=== PATIENT | male | born 1950 | race Caucasian/White ===

== ENCOUNTER 2017-11-18 20:00 | Outpatient (CLI) | payer BC | END 2017-11-18 20:01 | disposition home or self-care (01) | LOC: SLEEPLAB 20:00 | PROVIDERS: ATTEND Family Medicine | DX: G47.10 Hypersomnia, unspecified (principal); G47.33 Obstructive sleep apnea (adult) (pediatric); G47.61 Periodic limb movement disorder; G47.31 Primary central sleep apnea; I10 Essential (primary) hypertension; E66.9 Obesity, unspecified; Z68.34 Body mass index [BMI] 34.0-34.9, adult | CPT/HCPCS: 95811 ==

== ENCOUNTER 2023-03-14 09:57 | Outpatient (CLI) | payer BC ==
[2023-03-14 12:06] LABS: #Basophils 0.1 10x3/uL (0.0-0.2); #Eosinphils 0.1 10x3/uL (0.0-0.5); #Monocytes 0.6 10x3/uL (0.0-1.1); #Neutrophils 5.2 10x3/uL (1.5-8.4); %Basophils 0.7 % (0.0-2.0); %Eosinophils 1.6 % (0.0-6.0); %Lymphocytes 27.2 % (18.0-47.0); %Monocytes 7.2 % (0.0-10.0); %Neutrophils 62.9 % (40.0-75.0); Hematocrit 44.2 % (38.8-50.0); Hemoglobin 14.9 g/dL (13.5-17.5); Mean Corpuscular HGB CONC 33.7 g/dL (32.0-36.0); Mean Corpuscular Hemoglobin 30.5 pg (27.0-33.0); Mean Corpuscular Volume 90.4 fl (81.2-95.1); Mean Platelet Volume 9.7 fl (7.4-10.4); Platelet Count 222 10x3/uL (150-450); RBC Distribution Width 12.9 % (11.5-14.5); Red Blood Cell (RBC) Count 4.89 10x6/uL (4.32-5.72); White Blood Cell (WBC) Count 8.3 10x3/uL (3.5-10.5)
[2023-03-14 12:23] LABS: Anion Gap 14 mmol/L (10-20); BUN (Urea Nitrogen) 13 mg/dL (8.4-25.7); Calc. Creatinine Clearance 0 mL/min (70-130); Calcium 9.2 mg/dL (7.8-10.44); Carbon Dioxide 28 mmol/L (23-31); Chloride 99 mmol/L (98-107); Estimated GFR 92; Glucose 117 mg/dL (83-110); Potassium 3.9 mmol/L (3.5-5.1); Sodium 137 mmol/L (136-145)
== END 2023-03-14 09:58 | disposition home or self-care (01) ==
LOC: LABBT 09:57
PROVIDERS: ATTEND Surgery
DX: Z01.818 Encounter for other preprocedural examination (principal); K40.90 Unilateral inguinal hernia, without obstruction or gangrene, not specified as recurrent
CPT/HCPCS: 80048; 85025; 93005; 93010

== ENCOUNTER 2023-03-21 07:55 | Day surgery (SDC) | payer BC ==
[2023-03-14 10:25] VITALS: BMI 33.7
[2023-03-21] MEDS ORDERED: Sodium Chloride 0.9% 100 ML ONE (09:30)
[2023-03-21] MEDS ORDERED: CEFAZOLIN 2 GM VIAL ONE (09:30)
[2023-03-21] MEDS ORDERED: PROPOFOL 20 ML ONE ×2 (10:42→11:13)
[2023-03-21] MEDS ORDERED: EPINEPHrine 1 MG/ML VIAL ONE (10:45)
[2023-03-21] MEDS ORDERED: Bupivacaine 0.25% HCL 30 ML VIAL ONE (10:45)
[2023-03-21] MEDS ORDERED: fentaNYL PF 100 MCG/2 ML SYRINGE ONE (11:12)
[2023-03-21] MEDS ORDERED: Sevoflurane 250 ML INH ANEST BOTTLE ONE (11:13)
[2023-03-21] MEDS ORDERED: Rocuronium Bromide 10 MG/ML (10ML VIAL) ONE ×2 (11:37→11:42)
[2023-03-21] MEDS ORDERED: PROPOFOL 200 MG/20 ML VIAL ONE (11:37)
[2023-03-21] MEDS ORDERED: Ondansetron PF 4 MG/2 ML Vial ONE ×2 (11:37→12:39)
[2023-03-21] MEDS ORDERED: Glycopyrrolate 0.2 MG/ML 5 ML SYRINGE ONE ×2 (11:37→12:40)
[2023-03-21] MEDS ORDERED: Dexamethasone 20 MG/5 ML VIAL ONE (11:37)
[2023-03-21] MEDS ORDERED: NEOSTIGMINE 3 MG/3 ML SYR 3 MG/3 ML SYRINGE ONE ×2 (11:37→12:40)
[2023-03-21] MEDS ORDERED: Lidocaine 1% PF 5 ML VIAL ONE (11:37)
[2023-03-21] MEDS ORDERED: Dexamethasone 4 mg/ml Vial ONE (11:49)
== END 2023-03-21 15:39 | disposition home or self-care (01) ==
LOC: SDC 07:55
PROVIDERS: ATTEND Surgery
PROC: 0YQA4ZZ Repair Bilateral Inguinal Region, Percutaneous Endoscopic Approach (ICD-10-PCS; principal; 2023-03-21)
PROC: 8E0W4CZ Robotic Assisted Procedure of Trunk Region, Percutaneous Endoscopic Approach (ICD-10-PCS; principal; 2023-03-21)
DX: K40.20 Bilateral inguinal hernia, without obstruction or gangrene, not specified as recurrent (principal); E11.65 Type 2 diabetes mellitus with hyperglycemia; I10 Essential (primary) hypertension; I25.10 Atherosclerotic heart disease of native coronary artery without angina pectoris; F10.90 Alcohol use, unspecified, uncomplicated; E78.5 Hyperlipidemia, unspecified; E03.9 Hypothyroidism, unspecified; Z87.891 Personal history of nicotine dependence; Z79.82 Long term (current) use of aspirin; Z79.84 Long term (current) use of oral hypoglycemic drugs; Z79.899 Other long term (current) drug therapy; Z79.890 Hormone replacement therapy; Z95.0 Presence of cardiac pacemaker
CPT/HCPCS: A4314; C1781; J0171; J1100; J2405; J2704; J3490; S0020